=== PATIENT | male | born 1975 ===

== ENCOUNTER 2017-08-02 12:26 | Emergency (ER) | payer OTHER ==
[2017-08-02 12:26] VITALS: BMI 29.2
[2017-08-02 12:35] VITALS: O2SAT 98
[2017-08-02] MEDS ORDERED: Sodium Chloride 0.9% 1,000 ML IV STA (12:48)
--- NOTE | 2017-08-02 13:00 | ED PDOC ---
Arrival/HPI - General Chief Complaint: Abdominal Pain Time Seen by Provider: 08/02/17 12:39 Historian: Patient - History of Present Illness Narrative History of Present Illness (Text): 08/02/17 12:45 Keyon Snyder is a 41 year old male, who presents to the emergency department complaining of a headache and abdominal pain for the past two weeks. Patient reports that it has become worse these past few days and complains of having diarrhea x3 daily. He notes taking Advil for his headaches, which usually begin in the morning, but no medication for his abdominal pain. Patient denies chest pain, fever, nausea, vomiting, dysuria, or other complaints. No melena or hematachezia. PMD: None Time/Duration: > week (2 weeks) Symptom Onset: Gradual Symptom Course: Worsening Modifying Factors (Text): Advil for headache relief Associated Symptoms (Text): diarrhea, headache, abdominal pain Past Medical History - Provider Review Nursing Documentation Reviewed: Yes - Infectious Disease Hx of Infectious Diseases: None - Tetanus Immunization Tetanus Immunization: Unknown - Past Medical History Past Medical History: No Previous - Psychiatric Hx Psychophysiologic Disorder: No Hx Substance Use: No - Past Surgical History Past Surgical History: No Previous - Anesthesia Hx Anesthesia: No - Suicidal Assessment Feels Threatened In Home Enviroment: No Family/Social History - Physician Review Nursing Documentation Reviewed: Yes Family/Social History: Unknown Family HX Smoking Status: Never Smoked Hx Alcohol Use: No (QUIT) Hx Substance Use: No Allergies/Home Meds Allergies/Adverse Reactions: Allergies No Known Allergies Allergy (Verified 08/02/17 12:31) Review of Systems - Review of Systems Constitutional: absent: Fevers Respiratory: absent: SOB, Cough Cardiovascular: absent: Chest Pain Gastrointestinal: Abdominal Pain, Diarrhea (x3 daily ). absent: Nausea, Vomiting Genitourinary Male: absent: Dysuria, Frequency Neurological: Headache. absent: Dizziness Physical Exam Vital Signs Reviewed: Yes Vital Signs Temp Pulse Resp BP Pulse Ox 08/02/17 14:49 98.2 F 80 17 130/85 98 08/02/17 12:34 98.0 F 84 16 144/90 98 Temperature: Afebrile Blood Pressure: Normal Pulse: Regular Respiratory Rate: Normal Appearance: Positive for: Well-Appearing, Non-Toxic, Comfortable Pain Distress: None Mental Status: Positive for: Alert and Oriented X 3 - Systems Exam Head: Present: Atraumatic, Normocephalic Pupils: Present: PERRL Extroacular Muscles: Present: EOMI Conjunctiva: Present: Normal Respiratory/Chest: Present: Clear to Auscultation, Good Air Exchange. No: Respiratory Distress, Accessory Muscle Use Cardiovascular: Present: Regular Rate and Rhythm, Normal S1, S2. No: Murmurs Abdomen: Present: Tenderness (epigastric and left sided abdominal tenderness), Normal Bowel Sounds, Guarding. No: Distention, Peritoneal Signs Neurological: Present: GCS=15, CN II-XII Intact, Speech Normal Skin: Present: Warm, Dry, Normal Color. No: Rashes Psychiatric: Present: Alert, Oriented x 3, Normal Insight, Normal Concentration Medical Decision Making ED Course and Treatment: 08/02/17 Impression: 41 year old male with tenderness to the epigastric and left sided region of abdomen with guarding. complaining of headache and diarrhea x3 daily for the past two weeks. Differential Diagnosis included but are not limited to: gastroenteritis vs. diverticulits Plan: -- CT abdomen and pelvis -- Labs -- Tylenol, Pepcid, Reglan, and Sodium Chloride -- Reassess and disposition Progress Notes: Accession No. : [id number] Patient Name / ID : RAINE BARNES / [id number] Exam Date : 08/02/2017 15:04:01 ( Approved ) Study Comment : Sex / Age : M / 41Y Creator : Joaquin Vergara MD Dictator : Joaquin Vergara MD Communications Administrator : Licensed Practical Nurse Clinic Nurse : Joaquin Vergara MD Approver2 : Report Date : 08/02/2017 15:25:59 My Comment : PROCEDURE: CT Abdomen and Pelvis with contrast HISTORY: left sided pain r/o diverticulitis IMPRESSION: Unremarkable contrast enhanced CT of the abdomen and pelvis. 08/02/17 15:38 Patient feels much better and no longer has symptoms. He is able to tolerate PO Fluids. He was advised to take Pepcid and Maalox at home for his symptoms and to follow up with the [facility]. Advised to return to the ED if symptoms worsen or any other concern. - Lab Interpretations Lab Results: 08/02/17 11:15 08/02/17 11:15 Lab Results 08/02/17 14:40: Magnesium 1.8 08/02/17 11:15: Sodium 143, Potassium 3.3 L, Chloride 107, Carbon Dioxide 27, Anion Gap 12, BUN 14, Creatinine 0.7 L, Est GFR ( Amer) > 60, Est GFR ( Non-Af Amer) > 60, Random Glucose 114 H, Calcium 8.8, Total Bilirubin 0.7, AST 23, ALT 32, Alkaline Phosphatase 104, Total Protein 6.7, Albumin 4.0, Globulin 2.7, Albumin/Globulin Ratio 1.5, Lipase 72 08/02/17 11:15: WBC 5.7, RBC 4.61, Hgb 13.4 L, Hct 39.9 L, MCV 86.6, MCH 29.1, MCHC 33.6, RDW 13.5, Plt Count 162, MPV 11.3 H, Gran % 47.0 L, Lymph % (Auto) 42.5 H, [place] % (Auto) 8.5 H, Eos % (Auto) 1.6, Baso % (Auto) 0.4, Gran # 2.67, Lymph # 2.4, [place] # 0.5, Eos # 0.1, Baso # 0.02 I have reviewed the lab results: Yes - RAD Interpretation Radiology Orders: 08/02/17 12:53 ABD & PELVIS IV CONTRAST ONLY [CT] Stat Business Analysis Specialist: Radiologist - Medication Orders Current Medication Orders: Discontinued Medications Acetaminophen (Tylenol 325mg Tab) 650 mg PO STAT STA Stop: 08/02/17 12:55 Last Admin: 08/02/17 13:21 Dose: 650 mg Famotidine (Pepcid) 20 mg IVP STAT STA Stop: 08/02/17 12:49 Last Admin: 08/02/17 13:21 Dose: 20 mg IVP Administration Document 08/02/17 13:21 IT (Rec: 08/02/17 13:21 IT [id number]) Charges for Administration # of IVP Administrations 1 Sodium Chloride (Sodium Chloride 0.9%) 1,000 mls @ 1,000 mls/hr IV .Q1H STA Stop: 08/02/17 13:47 Last Admin: 08/02/17 13:21 Dose: 1,000 mls/hr eMAR Start Stop Document 08/02/17 13:21 IT (Rec: 08/02/17 13:21 IT [id number]) Intravenous Solution Start Date 08/02/17 Start Time 13:21 End Date 08/02/17 End time 14:21 Total Infusion Time 60 Metoclopramide HCl (Reglan) 10 mg IVP STAT STA Stop: 08/02/17 12:55 Last Admin: 08/02/17 13:21 Dose: 10 mg IVP Administration Document 08/02/17 13:21 IT (Rec: 08/02/17 13:21 IT [id number]) Charges for Administration # of IVP Administrations 1 Potassium Chloride (K-Dur 20 Meq Er Tab) 40 meq PO STAT STA Stop: 08/02/17 14:46 Last Admin: 08/02/17 14:56 Dose: 40 meq - Scribe Statement The provider has reviewed the documentation as recorded by the Glenda Valderrama Provider Scribe Attestation: All medical record entries made by the Glenda were at my direction and personally dictated by me. I have reviewed the chart and agree that the record accurately reflects my personal performance of the history, physical exam, medical decision making, and the department course for this patient. I have also personally directed, reviewed, and agree with the discharge instructions and disposition. Disposition/Present on Arrival - Present on Arrival Any Indicators Present on Arrival: No History of DVT/PE: No History of Uncontrolled Diabetes: No Urinary Catheter: No History of Decub. Ulcer: No History Surgical Site Infection Following: None - Disposition Have Diagnosis and Disposition been Completed?: Yes Diagnosis: Gastroenteritis Disposition: HOME/ ROUTINE Disposition Time: 15:40 Patient Plan: Discharge Patient Problems: Current Active Problems Problem Status Onset Gastroenteritis Acute Condition: IMPROVED Additional Instructions: Mr Snyder, thank you for letting us take care of you today. Your provider was Dr. Silva. You were treated for Gastroenteritis. The emergency medical care you received today was directed at your acute symptoms. If you were prescribed any medication, please fill it and take as directed. It may take several days for your symptoms to resolve. Return to the Emergency Department if your symptoms worsen, do not improve, or if you have any other problems. Please contact your doctor or call one of the physicians/clinics you have been referred to that are listed on the Patient Visit Information form that is included in your discharge packet. Bring any paperwork you were given at discharge with you along with any medications you are taking to your follow up visit. Our treatment cannot replace ongoing medical care by a primary care provider (PCP) outside of the emergency department. Thank you for allowing the [facility] team to be part of your care today. If you had an X-Ray or CT scan: A Radiologist will review the ED reading if any change in treatment is needed we will contact you. If you had a blood, urine, or wound culture: It will take several days for the results, if any change in treatment is needed we will contact you. If you had an STI test: It will take 48 hours for the results. Please call after 1 week if you have not heard back. Prescriptions: Aluminum Hydroxide/Magnesium H [Maalox 30 ml] 30 ml PO Q8 #1 bottle Famotidine [Pepcid] 20 mg PO DAILY #30 tab [place] [facility] [place] [facility] [place] [facility] [place] - Follow up with primary Forms: [employer] ([place])
[2017-08-02 13:24] LABS: BASO # 0.02 K/mm3 (0.0-2.0); BASO % 0.4 % (0.0-3.0); EOS # 0.1 (0.0-0.7); EOS % 1.6 % (1.5-5.0); GRAN # 2.67 (1.4-6.5); HEMATOCRIT 39.9 % (42.0-52.0); LYMPH # 2.4 (1.2-3.4); LYMPH % 42.5 % (22.0-35.0); MEAN CELL VOLUME 86.6 fl (80.0-105.0); MEAN CORPUSCULAR HEMOGLOBIN 29.1 pg (25.0-35.0); MEAN CORPUSCULAR HGB CONC 33.6 g/dl (31.0-37.0); MEAN PLATELET VOLUME 11.3 fl (7.0-11.0); MONO # 0.5 (0.1-0.6); MONO % 8.5 % (1.0-6.0); RED CELL DISTRIBUTION WIDTH 13.5 % (11.5-14.5); WHITE BLOOD COUNT 5.7 10^3/ul (4.5-11.0)
[2017-08-02 13:40] LABS: ALB/GLOB RATIO 1.5 (1.1-1.8); BLOOD UREA NITROGEN 14 mg/dL (7-21); CALCIUM 8.8 mg/dL (8.4-10.5); CARBON DIOXIDE 27 mmol/L (21-33); CHLORIDE 107 mmol/L (98-107); GFR AFRICAN-AMERICAN > 60; GLUCOSE,RANDOM 114 mg/dL (70-110); POTASSIUM 3.3 mmol/L (3.6-5.0); SODIUM 143 mmol/L (132-148); TOTAL PROTEIN 6.7 g/dL (5.8-8.3)
[2017-08-02 13:41] LABS: ALKALINE PHOSPHATASE 104 U/L (38-126); ALT/SGPT 32 U/L (7-56); AST/SGOT 23 U/L (17-59); BILIRUBIN,TOTAL 0.7 mg/dL (0.2-1.3); LIPASE 72 U/L (23-300)
[2017-08-02] MEDS ORDERED: Iohexol 350 MG/100 ML VIAL ONE (14:44)
[2017-08-02] MEDS ORDERED: Potassium Chloride 20 mEq ER Tab PO STA (14:45)
[2017-08-02 14:51] VITALS: RESP 17
--- NOTE | 2017-08-02 15:27 | CT ---
PROCEDURE: CT Abdomen and Pelvis with contrast HISTORY: left sided pain r/o diverticulitis COMPARISON: None. TECHNIQUE: Contrast dose: 100 cc of Omni 350 Radiation dose: Total exam DLP = 618 mGy-cm. This CT exam was performed using one or more of the following dose reduction techniques: Automated exposure control, adjustment of the mA and/or kV according to patient size, and/or use of iterative reconstruction technique. FINDINGS: LOWER THORAX: Unremarkable. LIVER: Unremarkable. No gross lesion or ductal dilatation. GALLBLADDER AND BILE DUCTS: Unremarkable. PANCREAS: Unremarkable. No gross lesion or ductal dilatation. SPLEEN: Unremarkable. ADRENALS: Unremarkable. No mass. KIDNEYS AND URETERS: Unremarkable. No hydronephrosis. No solid mass. VASCULATURE: Unremarkable. No aortic aneurysm. BOWEL: Unremarkable. No obstruction. No gross mural thickening. APPENDIX: Normal appendix. PERITONEUM: Unremarkable. No free fluid. No free air. LYMPH NODES: Unremarkable. No enlarged lymph nodes. BLADDER: Unremarkable. REPRODUCTIVE: Unremarkable. BONES: No acute fracture. OTHER FINDINGS: None. IMPRESSION: Unremarkable contrast enhanced CT of the abdomen and pelvis.
[2017-08-02 15:47] VITALS: BP 135/75; PULSE 82; TEMP 98.6
== END 2017-08-02 15:46 | disposition home or self-care (01) ==
LOC: ED 12:26
DX: K52.9 Noninfective gastroenteritis and colitis, unspecified (principal)
CPT/HCPCS: 74177; 80053; 83690; 83735; 85025; 96361; 96374; 96375; 99284; J2765; J7040; Q9967

== ENCOUNTER 2018-10-01 13:54 | Emergency (ER) | payer OTHER ==
[2018-10-01 14:04] VITALS: RESP 16; TEMP 98.6; O2SAT 99; BMI 24.3
--- NOTE | 2018-10-01 14:24 | ED PDOC ---
Arrival/HPI - General Chief Complaint: Weakness/Neurological Deficit Time Seen by Provider: 10/01/18 14:05 Historian: Patient - History of Present Illness Narrative History of Present Illness (Text): 10/01/18 14:19 42 year old, with no significant past medical history, presents to the emergency department with right side mouth numbness/droop, and mild headache, for 4 days. was diagnosied with similar in [place] 25 years ago. Patient denies any other weakness or numbness. Patient denies any fevers, chills, dizziness, chest pain, shortness of breath, cough, abdominal pain, nausea, vomiting, diarrhea, back pain, neck pain, or any other complaint. 10/01/18 15:00 Time/Duration: < week (4 days) Symptom Onset: Gradual Symptom Course: Unchanged Context: Home Past Medical History - Provider Review Nursing Documentation Reviewed: Yes - Infectious Disease Hx of Infectious Diseases: None - Tetanus Immunization Tetanus Immunization: Unknown - Past Medical History Past Medical History: No Previous - Psychiatric Hx Psychophysiologic Disorder: No Hx Substance Use: No - Past Surgical History Past Surgical History: No Previous - Anesthesia Hx Anesthesia: No - Suicidal Assessment Feels Threatened In Home Enviroment: No Family/Social History - Physician Review Nursing Documentation Reviewed: Yes Family/Social History: No Known Family HX Smoking Status: Never Smoked Hx Alcohol Use: No (QUIT) Hx Substance Use: No Allergies/Home Meds Allergies/Adverse Reactions: Allergies No Known Allergies Allergy (Verified 08/02/17 12:31) Review of Systems - Physician Review All systems were reviewed & negative as marked: Yes - Review of Systems Constitutional: absent: Fevers, Night Sweats Respiratory: absent: SOB, Cough Cardiovascular: absent: Chest Pain Gastrointestinal: absent: Abdominal Pain, Diarrhea, Nausea, Vomiting Musculoskeletal: absent: Back Pain, Neck Pain Neurological: Headache, Speech Changes, Facial Droop. absent: Dizziness Physical Exam Vital Signs Reviewed: Yes Vital Signs Temp Pulse Resp BP Pulse Ox 10/01/18 14:00 98.6 F 67 16 153/92 H 99 Temperature: Afebrile Blood Pressure: Hypertensive Pulse: Regular Respiratory Rate: Normal Appearance: Positive for: Well-Appearing, Non-Toxic, Comfortable Pain Distress: None Mental Status: Positive for: Alert and Oriented X 3 - Systems Exam Head: Present: Atraumatic, Normocephalic Pupils: Present: PERRL Extroacular Muscles: Present: EOMI Conjunctiva: Present: Normal Mouth: Present: Moist Mucous Membranes Neck: Present: Normal Range of Motion Respiratory/Chest: Present: Clear to Auscultation, Good Air Exchange. No: Respiratory Distress, Accessory Muscle Use Cardiovascular: Present: Regular Rate and Rhythm, Normal S1, S2. No: Murmurs Abdomen: No: Tenderness, Distention, Peritoneal Signs Back: Present: Normal Inspection Upper Extremity: Present: Normal Inspection. No: Cyanosis, Edema Lower Extremity: Present: Normal Inspection. No: Edema Neurological: Present: GCS=15, Speech Normal, Motor Func Grossly Intact, Normal Sensory Function, Normal Cerebellar Funct, Gait Normal, Memory Normal, Normal 2Pt Descrimination, Other (Right sided facial droop; no forehead sparing, cn 6 intact. ) Skin: Present: Warm, Dry, Normal Color. No: Rashes Psychiatric: Present: Alert, Oriented x 3, Normal Insight, Normal Concentration Medical Decision Making ED Course and Treatment: 10/01/18 14:25 Impression: 42 year old male presents with facial droop and headache. Plan: -- Tylenol -- Zovirax -- Prednisone -- Reassess and disposition Prior Visits: Notes and results from previous visits were reviewed. Progress Notes: 10/01/18 15:01 exam consistent with bells. ?h/o of bells in past. no thundercalp features. no stroke risk factor. no other neurolgic ocomplaints. advsie outpt fu. 10/02/18 07:28 no forehead sparing. ?h/o of similar in [place]. - Scribe Statement The provider has reviewed the documentation as recorded by the Glenda Andre Provider Scribe Attestation: All medical record entries made by the Bitaibvaldemar were at my direction and personally dictated by me. I have reviewed the chart and agree that the record accurately reflects my personal performance of the history, physical exam, medical decision making, and the department course for this patient. I have also personally directed, reviewed, and agree with the discharge instructions and disposition. Disposition/Present on Arrival - Present on Arrival Any Indicators Present on Arrival: No History of DVT/PE: No History of Uncontrolled Diabetes: No Urinary Catheter: No History of Decub. Ulcer: No History Surgical Site Infection Following: None - Disposition Have Diagnosis and Disposition been Completed?: Yes Diagnosis: Simmons's palsy Disposition: HOME/ ROUTINE Disposition Time: 14:00 Condition: STABLE Discharge Instructions (ExitCare): Simmons's Palsy (DC) Print Language: OCCITAN Additional Instructions: return to er with worsening symptoms or concerns. Prescriptions: RX: Acyclovir 400 mg PO 5XD #35 tablet RX: Prednisone 50 mg PO DAILY #5 tablet Referrals: Steve Post DO [Staff Provider] - Follow up with primary PCP,NO [Primary Care Provider] - Follow up with primary Annel Crum MD [Staff Provider] - Follow up with primary Forms: [employer] ([place]rainian)
[2018-10-01 15:05] VITALS: BP 112/76; PULSE 72
== END 2018-10-01 14:45 | disposition home or self-care (01) ==
LOC: ED 13:54
DX: G51.0 Bell's palsy (principal)
CPT/HCPCS: 99284; J8499